=== PATIENT | male | born 1985 | race Caucasian/White ===

== ENCOUNTER 2017-01-24 07:07 | Outpatient (CLI) | payer OTHER ==
--- OUTSIDE RECORDS SUMMARY | 2017-01-24 07:10 | XMS | Clinical Summary ---
:1985 Author Organization [facility] Address [address] [place] [address] Phone Care Team Providers Name Role Phone , Primary Care Provider Unavailable Allergies Active Allergy Reactions Severity Noted Date Comments Cephalexin 07/21/2014 ORAL THRUSH Levofloxacin 07/21/2014 Penicillins 07/21/2014 Current Medications Prescription Sig. Disp. Refills Start Date End Date Status dextroamphetamine-amph Take 25 mg by mouth 2 Active etamine (ADDERALL XR) (two) times daily. 25 MG 24 hr capsuleIndications:Sin us congestion risperiDONE (RISPERDAL Take 2 mg by mouth Active M-TABS) 2 MG nightly. disintegrating tabletIndications:Depr ession risperiDONE (RISPERDAL Take 1 mg by mouth Active M-TABS) 1 MG daily with breakfast. disintegrating tabletIndications:Depr ession ARIPiprazole (ABILIFY) Take 2 mg by mouth Active 2 MG daily. tabletIndications:Depr ession FLUoxetine (PROZAC) 40 Take 40 mg by mouth Active MG daily. capsuleIndications:Dep ression gemfibrozil (LOPID) Take 600 mg by mouth 2 Active 600 MG (two) times daily. tabletIndications:Hype rlipidemia cimetidine (TAGAMET) Take 800 mg by mouth 2 Active 800 MG (two) times daily. tabletIndications:GERD (gastroesophageal reflux disease) pantoprazole Take 10 mg by mouth Active (PROTONIX) 20 MG daily. tabletIndications:GERD (gastroesophageal reflux disease) montelukast Take 10 mg by mouth Active (SINGULAIR) 10 mg nightly. tabletIndications:Seas onal allergies hydrOXYzine (ATARAX) Take 25 mg by mouth Active 25 MG daily with breakfast. tabletIndications:Seas onal allergies silodosin (RAPAFLO) 8 Take by mouth nightly. Active mg CapIndications:Urinary retention ciclesonide (OMNARIS) 2 sprays by Each Nare Active 50 mcg nasal spray route 2 (two) times daily. coenzyme Q10 100 mg Take 100 mg by mouth Active capsule daily. evening primrose oil Take by mouth. Active 500 mg Cap amLODIPine (NORVASC) 07/23/2014 Active 10 MG tablet LINZESS 290 mcg Cap 07/09/2014 Active traMADol (ULTRAM) 50 06/15/2014 Active mg tablet ARIPiprazole (ABILIFY) 07/30/2014 Active 2 MG tablet testosterone cypionate INJECT 2.25 ML 10 mL 0 08/21/2014 Active (DEPOTESTOTERONE INTRAMUSCULARLY ONCE CYPIONATE) 200 mg/mL EVERY 2 WEEKS injectionIndications:[facility], or Other Ordered Dose Route Frequency Start Date End Date Status Facility Administered Medication testosterone cypionate 500 MG IM Q2 Weeks 09/23/2014 Active (DEPOTESTOTERONE CYPIONATE) injection 500 mgIndications:Low testosterone Active Problems Problem Noted Date Acute sinus infection 08/24/2014 Sinus congestion 08/12/2014 Seasonal allergies 08/12/2014 Head ache 08/12/2014 Family History Medical History Relation Name Comments Diabetes Father Hypertension Father Arthritis Maternal Grandfather Hypertension Maternal Grandfather Hypertension Maternal Grandmother Kidney disease Maternal Uncle Hypertension Mother Heart disease Paternal Grandfather Hypertension Paternal Grandfather Heart disease Paternal Grandmother Hypertension Paternal Grandmother Heart disease Paternal Uncle Relation Name Status Comments Father Maternal Grandfather Maternal Grandmother Maternal Uncle Mother Paternal Grandfather Paternal Grandmother Paternal Uncle Social History Tobacco Use Types Packs/Day Years Used Date Never Smoker Alcohol Use Drinks/Week oz/Week Comments No Sex Assigned at Date Recorded Not on file Last Filed Vital Signs Vital Sign Reading Time Taken Blood Pressure 120/80 08/24/2014 1:48 PM CDT Pulse 99 08/24/2014 1:48 PM CDT Temperature 36.9 C (98.4 F) 08/24/2014 1:48 PM CDT Respiratory Rate 18 08/24/2014 1:48 PM CDT Oxygen Saturation 97% 08/24/2014 1:48 PM CDT Inhaled Oxygen Concentration - - Weight 115.7 kg (255 lb) 08/24/2014 1:48 PM CDT Height 177.8 cm (5' 10") 08/24/2014 1:48 PM CDT Body Mass Index 36.59 08/24/2014 1:48 PM CDT Plan of Treatment Health Maintenance Due Date Last Done Comments INFLUENZA VACCINE 12/10/2016 Results Not on filefrom Last 3 Months
--- NOTE | 2017-01-24 08:34 | ULT ---
RIGHT UPPER QUADRANT ULTRASOUND: HISTORY: Right upper quadrant pain. FINDINGS: Exam is limited due to a large amount of bowel gas. The pancreas and left lobe of the liver are not satisfactorily visualized. The right lobe of the liver demonstrates homogeneous echotexture without focal mass or intrahepatic ductal dilatation. No gallstones, gallbladder wall thickening, or pericho lecystic fluid are seen. The common duct measures 5 mm in diameter. The right kidney is unremarkabl e. No free fluid is seen in the Morison's pouch. IMPRESSION: Limited exam. No evidence of cholelithiasis. POS: [facility]
--- NOTE | 2017-01-24 14:47 | NM ---
GASTRIC EMPTYING EXAM: CLINICAL HISTORY: Gastroparesis, slow transit, constipation. RADIOPHARMACEUTICAL: 2 mCi Technetium 99m sulfur colloid, oral ingestion. FINDINGS: The approximately gastric emptying half-time is 158 minutes. At 230 minutes, there is approximate 60 % emptying. IMPRESSION: Gastric emptying half-time of approximately 158 minutes. POS: [facility]
== END 2017-01-24 07:08 | disposition home or self-care (01) ==
LOC: ULT 07:07
PROVIDERS: ATTEND Internal Medicine Gastroenterology
DX: K31.84 Gastroparesis (principal); R10.11 Right upper quadrant pain; K59.01 Slow transit constipation; K76.0 Fatty (change of) liver, not elsewhere classified
CPT/HCPCS: 76705; 78264; A9541

== ENCOUNTER 2017-08-05 08:29 | Emergency (ER) | payer OTHER ==
[2017-08-05 08:50] LABS: #Basophils 0.1 thou/uL (0.0-0.2); #Eosinphils 0.1 thou/uL (0.0-0.7); #Lymphocytes 1.6 thou/uL (1.20-3.40); #Monocytes 0.4 thou/uL (0.11-0.59); #Neutrophils 2.9 thou/uL (1.40-6.50); %Basophils 1.3 % (0.0-1.0); %Eosinophils 1.7 % (0.0-10.0); %Lymphocytes 31.2 % (21.0-51.0); %Monocytes 7.1 % (0.0-10.0); %Neutrophils 58.7 % (42.0-75.0); Hemoglobin 14.9 g/dL (14.0-18.0); Mean Corpuscular HGB CONC 34.1 g/dL (32.0-36.0); Mean Corpuscular Hemoglobin 31.9 pg (27.0-31.0); Mean Corpuscular Volume 93.5 fl (80.0-94.0); Mean Platelet Volume 7.2 fL (7.4-10.4); Platelet Count 286 thou/uL (130-400); RBC Distribution Width 11.5 % (11.5-14.5); Red Blood Cell (RBC) Count 4.66 mill/uL (4.70-6.10)
[2017-08-05 09:08] LABS: ALT (SGPT) 16 U/L (8-55); AST (SGOT) 17 U/L (5-34); Albumin 4.5 g/dL (3.5-5.0); Alkaline Phosphatase 59 U/L (40-150); Anion Gap 11 mmol/L (10-20); BUN (Urea Nitrogen) 12 mg/dL (8.9-20.6); Bilirubin, Total 0.9 mg/dL (0.2-1.2); Calc. Creatinine Clearance 0 mL/min (70-130); Calcium 9.9 mg/dL (7.8-10.44); Carbon Dioxide 20 mmol/L (22-29); Chloride 110 mmol/L (98-107); Estimated GFR-MDRD 88; Globulin 2.8 g/dL (2.4-3.5); Glucose 90 mg/dL (70-105); Potassium 3.8 mmol/L (3.5-5.1); Protein, Total 7.3 g/dL (6.0-8.3); Sodium 137 mmol/L (136-145)
[2017-08-05 09:29] LABS: Bilirubin Negative (Negative); Blood, Urine Large (Negative); Clarity CLEAR (Clear); Glucose, Urine (Dipstick) Negative (Negative); Leukocyte Negative (Negative); Nitrite Negative (Negative); Protein, Urine (Dipstick) Negative (Neg-Trace); Specific Gravity, Urine 1.011 (1.002-1.036); Urobilinogen 0.2 mg/dL (0.2-1.0); pH, Urine 6.5 (5.0-9.0)
[2017-08-05 09:33] LABS: Bacteria/HPF None Seen HPF (None Seen); Hyaline Casts/LPF 0-3 HYALINE CAST LPF (0-3 Hyaline); Pathc Cast-AUWi Flag 0.58 (0-2.49); RBC/HPF GREATER THAN 50-TNTC HPF (0-3); Squamous Epithelial None Seen HPF (0-3); WBC/HPF 0-3 HPF (0-3)
[2017-08-05] MEDS ORDERED: Ondansetron ODT 8 MG TAB ONE (09:35)
[2017-08-05] MEDS ORDERED: HYDROcodone/Acetaminophen 5/325 mg Tablet ONE (11:19)
--- NOTE | 2017-08-05 11:21 | CT ---
CT OF ABDOMEN AND PELVIS: DATE: 08/05/17. COMPARISON: 06/10/16. HISTORY: Hematuria and back pain. TECHNIQUE: Serial axial CT imaging at 5 mm intervals from the lung bases through the pubic symphysis without con trast. Coronal reformatted imaging obtained. FINDINGS: Evaluation of the viscera bowel vascular structures and for lymphadenopathy. The imaged lung bases a re unremarkable with no free intraperitoneal air or fluid seen. The liver, spleen, pancreas, gallbladder, and adrenal glands are unremarkable. There is a punctate nonobstructing stone in the lower pole of the left kidney. There is no evidence for obstructive uropathy on the left. There is a stone within the proximal right ureter measuring 5 mm. There is minimal prominence of the adjacent ureter with no significant hydronephrosis. No additional stone is seen within the right ur eter. Limited assessment of the bowel demonstrates no evidence for obstruction or inflammatory change. Oss eous structures grossly unremarkable. IMPRESSION: A 5 mm stone within the proximal right ureter with no associated hydronephrosis. POS: [facility]
== END 2017-08-05 11:25 | disposition home or self-care (01) ==
LOC: ERS 08:29
DX: N20.0 Calculus of kidney (principal); E78.5 Hyperlipidemia, unspecified; I10 Essential (primary) hypertension; Z79.899 Other long term (current) drug therapy
CPT/HCPCS: 36415; 74176; 80053; 81003; 81015; 85025

== ENCOUNTER 2017-08-21 07:46 | Outpatient (CLI) | payer OTHER ==
--- NOTE | 2017-08-21 09:31 | RAD ---
SUPINE KUB: Date: 08-21-17 Comparison: None. History: Ureteral calculus. Correlation is made to CT abdomen and pelvis performed 08-05-17. FINDINGS: The prior CT examination demonstrated a punctate stone within the proximal right ureter and the level of the ureteropelvic junction. There was also a punctate intrarenal calculus within the left lower p ole. The bowel gas pattern appears nonobstructed. There is spina bifida occulta at the S1 level. No d iscrete calcification is seen in either upper quadrant. There is a calcific density overlying the sacrum on the right measuring 3 mm. This could possibly rep resent the calculus which was noted within the proximal ureter on prior imaging. IMPRESSION: 3-4 mm calcification seen overlying the right sacral ala which could represent a distal right uretera l stone. CT or retrograde study may be beneficial as clinically warranted. POS: [facility]
== END 2017-08-21 07:47 | disposition home or self-care (01) ==
LOC: RAD 07:46
PROVIDERS: ATTEND Urology
DX: N20.1 Calculus of ureter (principal); M61.9 Calcification and ossification of muscle, unspecified
CPT/HCPCS: 74018; 80048; 85027; 85610; 85730; 93005; 93010

== ENCOUNTER 2017-08-21 09:36 | Outpatient (CLI) | payer OTHER ==
[2017-08-21 11:04] LABS: Hemoglobin 15.5 g/dL (14.0-18.0); Mean Corpuscular HGB CONC 33.6 g/dL (32.0-36.0); Mean Corpuscular Hemoglobin 31.6 pg (27.0-31.0); Mean Corpuscular Volume 94.1 fl (80.0-94.0); Mean Platelet Volume 7.2 fL (7.4-10.4); Platelet Count 341 thou/uL (130-400); RBC Distribution Width 11.5 % (11.5-14.5); White Blood Cell (WBC) Count 4.4 thou/uL (4.8-10.8)
[2017-08-21 11:08] LABS: PTT 29.3 SEC (22.9-36.1); Prothrombin Time 12.9 SEC (12.0-14.7)
[2017-08-21 11:22] LABS: Anion Gap 13 mmol/L (10-20); BUN (Urea Nitrogen) 16 mg/dL (8.9-20.6); Calc. Creatinine Clearance 0 mL/min (70-130); Carbon Dioxide 23 mmol/L (22-29); Chloride 106 mmol/L (98-107); Estimated GFR-MDRD Greater than 90; Glucose 88 mg/dL (70-105); Sodium 138 mmol/L (136-145)
--- NOTE | 2017-08-21 13:22 | EKG ---
Test Reason : Blood Pressure : / mmHG Vent. Rate : 057 BPM Atrial Rate : 057 BPM P-R Int : 124 ms QRS Dur : 090 ms QT Int : 432 ms P-R-T Axes : 031 042 053 degrees QTc Int : 420 ms Sinus bradycardia Increased R/S ratio in V1, consider early transition or posterior infarct Abnormal ECG When compared with ECG of 23-JAN-2016 07:43, Vent. rate has decreased BY 32 BPM Confirmed by ISAAC CHASE ([id number]) on 08/21/2017 1:22:05 PM Referred By: SPIKE Confirmed By:ISAAC CHASE
== END 2017-08-21 09:37 | disposition home or self-care (01) ==
LOC: LABBT 09:36
PROVIDERS: ATTEND Urology
DX: Z01.818 Encounter for other preprocedural examination (principal); N20.1 Calculus of ureter; N13.30 Unspecified hydronephrosis
CPT/HCPCS: 80048; 85027; 85610; 85730; 93005; 93010

== ENCOUNTER 2017-08-22 05:42 | Day surgery (SDC) | payer OTHER ==
[2017-08-21 10:06] VITALS: BMI 29.8
[2017-08-22] MEDS ORDERED: Sodium Chloride 0.9% 100 ML ONE (07:57)
[2017-08-22] MEDS ORDERED: cefTRIAXone\\ROCEPHIN 1 GM VIAL ONE (07:57)
--- NOTE | 2017-08-22 09:12 | RAD ---
KUB: DATE: 08/22/17. PROVIDED CLINICAL HISTORY: Preop. FINDINGS: Comparison is made with the KUB dated 08/21/[address] of the abdomen and pelvis 08/05/17. The radioden sity described on the prior radiograph overlying the right sacral ala is redemonstrated, presumably r eflecting known right ureteral calculus. No additional urinary tract calculi are radiographically ap parent. The abdominal bowel gas pattern is nonspecific. The osseous structures demonstrate no monie rning lytic or blastic lesions. IMPRESSION: Radiodensity overlying the right hemipelvis presumably reflects known right ureteral calculus. POS: [facility]
[2017-08-22] MEDS ORDERED: Midazolam HCl 2 mg/2 ml Vial ONE ×2 (09:14→09:56)
[2017-08-22] MEDS ORDERED: Iothalamate Meglumine 60% 50 ML VIAL FS ONE (09:36)
[2017-08-22] MEDS ORDERED: Fentanyl 100 MCG/2 ML VIAL ONE ×2 (09:56→11:27)
[2017-08-22] MEDS ORDERED: Ondansetron HCl/PF 4 MG/2 ML Vial ONE (11:13)
[2017-08-22] MEDS ORDERED: Lidocaine 1% PF 5 ML VIAL ONE (11:13)
[2017-08-22] MEDS ORDERED: Glycopyrrolate 0.2 MG/ML 5 ML SYRINGE ONE (11:13)
[2017-08-22] MEDS ORDERED: ePHEDrine/0.9% NaCl/PF SYRINGE 50 mg/10 ml ONE (11:13)
[2017-08-22] MEDS ORDERED: Dexamethasone 20 MG/5 ML VIAL ONE (11:13)
[2017-08-22] MEDS ORDERED: PROPOFOL 200 MG/20 ML VIAL ONE (11:13)
[2017-08-22] MEDS ORDERED: Oxybutynin 5 MG TAB ONE (11:19)
[2017-08-22] MEDS ORDERED: Phenazopyridine HCl 97.5 MG TABLET ONE (11:19)
--- NOTE | 2017-08-22 11:45 | RAD ---
RETROGRADE PYELOGRAM 3 VIEWS: HISTORY: Ureteral calculus. FINDINGS: These films show the placement of a ureteral stent which appears to be in satisfactory position. IMPRESSION: Right ureteral stent placement which appears to be in good position. POS: [facility]
--- NOTE | 2017-08-22 17:28 | OP ---
DATE OF PROCEDURE: 08/22/2017 PREOPERATIVE DIAGNOSES: 1. A 32-year-old male with history of right proximal ureteral calculi 5 mm. 2. Left punctate renal lithiasis. POSTOPERATIVE DIAGNOSES: 1. A 32-year-old male with history of right proximal ureteral calculi 5 mm. 2. Left punctate renal lithiasis. PROCEDURES: Cystoscopy, right retrograde, 6 x 26 double-J ureteral stent placement on dangler, dilation of the right distal intramural ureter, ureteroscopy, laser lithotripsy, basket extraction of stone fragments. SURGEON: Karen Luke D.O. ANESTHESIA: General. COMPLICATIONS: None apparent. SPECIMEN: Stone fragments for chemical analysis. INTRAOPERATIVE FINDINGS: Distal migration of right proximal ureteral stone to the level of the ureter, bladder and urethra are grossly unremarkable. INDICATIONS FOR PROCEDURE AND HISTORY: Mr. Woo is a 32-year-old male, who presented to the emergency room due to right ureteral calculi with flank pain. His pain was adequately controlled with narcotics; however, required around the clock pain management and desired to proceed with elective ureteroscopy and laser lithotripsy. As there is minimal hydronephrosis, I informed the patient regarding options of medical expulsion therapy. He was observed for about a week, however, desired to proceed with elective ureteroscopy, laser lithotripsy. Follow up KUB demonstrated distal migration to the mid SI joint level. Risks and complications, indications were fully reviewed with the patient including, but not limited to, bleeding, pain, infection, injury to adjacent organs, urosepsis, stricture formation, possible secondary procedure was reviewed. All questions answered to his satisfaction and he desired to proceed. DESCRIPTION OF THE PROCEDURE: After an informed consent is signed, the patient is taken to the operating room, placed in a dorsal lithotomy position with the genital area prepped and draped in the usual surgical sterile fashion. A 21- [place] cystoscope was utilized for cystoscopy which demonstrated normal anterior and posterior urethra. Upon entering the bladder, the UO was identified in normal anatomical location. The right UO was identified and an open-ended catheter was utilized to perform a retrograde pyelogram which demonstrated a subtle filling defect and mild dilatation of the proximal to the right mid SI joint level of the stone. A 0.35 sensor wire was placed in the right upper pole without difficulty. We subsequently dilated the intramural ureter with a [employer] balloon dilator 4 cm, 12 [place] Islander. After adequate dilatation, we were able to pass a rigid ureteroscope carefully negotiated under direct visualization and the stone was able to be directly visualized. Using a 200 micron laser fiber at a dust setting, we dusted the stone. Most of the stone was dusted into dust-like debris; however, they fragmented into a couple of fragments which were basket extracted. There was a possibility that one fragment, although a small may have migrated into the proximal ureter. Therefore, we passed a second safety wire, 0.35 Super Stiff and flexible ureteroscope was advanced over the guidewire. I was unable to pass the flexible ureteroscope beyond the proximal ureter. I was able to visualize up to the UPJ junction, no proximal ureteral stone was appreciated. As I was unable to access the collecting system with stone cleared within the ureter itself, moreover the stone fragmented into multiple tiny pieces, no further intervention was necessary. The ureter was surveyed which demonstrated no evidence of ureteral mucosa trauma, no stone nidus of concern. Bladder was completely emptied and a 6 x 26 double-J ureteral stent was passed into the right upper pole with distal coil with adequate redundancy in the bladder. Dangler was left in situ. He will follow up with me next week for stent pull on dangler. He will be discharged with Flomax, antibiotics, Bactrim DS, AZO, we will provide refill prescription for his [employer] 5/325 #50. MTDD
== END 2017-08-22 13:05 | disposition home or self-care (01) ==
LOC: SDC 05:42
PROVIDERS: ATTEND Urology
PROC: 0TC68ZZ Extirpation of Matter from Right Ureter, Via Natural or Artificial Opening Endoscopic (ICD-10-PCS; principal; 2017-08-22)
PROC: BT1DYZZ Fluoroscopy of Right Kidney, Ureter and Bladder using Other Contrast (ICD-10-PCS; principal; 2017-08-22)
PROC: 0T768DZ Dilation of Right Ureter with Intraluminal Device, Via Natural or Artificial Opening Endoscopic (ICD-10-PCS; principal; 2017-08-22)
DX: N13.2 Hydronephrosis with renal and ureteral calculous obstruction (principal); F41.9 Anxiety disorder, unspecified; F32.9 Major depressive disorder, single episode, unspecified; F90.9 Attention-deficit hyperactivity disorder, unspecified type; K21.9 Gastro-esophageal reflux disease without esophagitis; G43.019 Migraine without aura, intractable, without status migrainosus; Z87.442 Personal history of urinary calculi; Z88.0 Allergy status to penicillin; Z88.1 Allergy status to other antibiotic agents; Z88.8 Allergy status to other drugs, medicaments and biological substances
CPT/HCPCS: 74018; 74420; 82365; 88300; 96374; J0696; J1100; J2001; J2250; J2405; J2704; J3010; J7050; Q9961

== ENCOUNTER 2017-10-12 08:24 | Outpatient (CLI) | payer OTHER ==
--- NOTE | 2017-10-15 14:22 | RAD ---
MODIFIED BARIUM SWALLOW: Date: 10/12/17 HISTORY: Dysphagia. Difficulty swallowing. FINDINGS/IMPRESSION: Exam was performed by speech pathology with multiple consistencies. Video review is available and dem onstrates good bolus formation and retropulsion> Good initiation of swallowing. With nectar consisten cies, there is minimal penetration and a small amount of pooling. Good clearance upon secondary swall ows. Slightly deeper penetration is present with the thin barium liquids. No evidence of aspiration. The esophagus below the level of the hypopharynx was not evaluated. Fluoro time equals 29 seconds. Please see separate detailed report from speech pathology. POS: [facility]
== END 2017-10-12 08:25 | disposition home or self-care (01) ==
PROVIDERS: ATTEND Otolaryngology Otolaryngic Allergy
DX: R13.11 Dysphagia, oral phase (principal)
CPT/HCPCS: 74230; G8996-GN-CI; G8997-GN-CI; G8998-GN-CI

== ENCOUNTER 2018-01-14 07:13 | Outpatient (CLI) | payer OTHER ==
--- NOTE | 2018-01-14 12:22 | NM ---
HEPATOBILIARY SCAN: HISTORY: Right upper quadrant pain. No gallstones on ultrasound of 12/26/2017. RADIOPHARMACEUTICAL: 5 mCi Technetium 99m-mebrofenin injected intravenously. FINDINGS: There is good flow and tracer extraction by the liver with prompt excretion into the biliary tract an d small bowel loops and normal filling of the gallbladder. The calculated gallbladder ejection fract ion following an oral fatty meal measures 29%. IMPRESSION: Gallbladder dyskinesia/chronic acalculus cholecystitis. POS: [facility]
== END 2018-01-14 07:14 | disposition home or self-care (01) ==
LOC: NM 07:13
PROVIDERS: ATTEND Internal Medicine Gastroenterology
DX: R10.11 Right upper quadrant pain (principal); R19.7 Diarrhea, unspecified; H18.04 Kayser-Fleischer ring; K31.84 Gastroparesis; K82.8 Other specified diseases of gallbladder
CPT/HCPCS: 78227; A9537

== ENCOUNTER 2018-01-21 19:48 | Emergency (ER) | payer OTHER ==
[2018-01-21 20:22] LABS: Bilirubin Negative (Negative); Blood, Urine Moderate (Negative); Clarity CLEAR (Clear); Glucose, Urine (Dipstick) Negative (Negative); Leukocyte Negative (Negative); Nitrite Negative (Negative); Protein, Urine (Dipstick) Negative (Neg-Trace); Specific Gravity, Urine 1.009 (1.002-1.036); Urobilinogen 0.2 mg/dL (0.2-1.0)
[2018-01-21 20:24] LABS: Bacteria/HPF None Seen HPF (None Seen); Hyaline Casts/LPF 0-3 HYALINE CAST LPF (0-3 Hyaline); RBC/HPF 0-3 HPF (0-3); Squamous Epithelial None Seen HPF (0-3); WBC/HPF 0-3 HPF (0-3)
[2018-01-21 20:49] LABS: #Basophils 0.1 thou/uL (0.0-0.2); #Eosinphils 0.2 thou/uL (0.0-0.7); #Lymphocytes 1.8 thou/uL (1.20-3.40); #Monocytes 0.6 thou/uL (0.11-0.59); #Neutrophils 7.2 thou/uL (1.40-6.50); %Basophils 0.5 % (0.0-1.0); %Eosinophils 1.6 % (0.0-10.0); %Lymphocytes 18.7 % (21.0-51.0); %Monocytes 6.3 % (0.0-10.0); %Neutrophils 72.9 % (42.0-75.0); Hemoglobin 14.9 g/dL (14.0-18.0); Mean Corpuscular Hemoglobin 30.8 pg (27.0-31.0); Mean Corpuscular Volume 93.3 fL (78.0-98.0); Platelet Count 356 thou/uL (130-400); RBC Distribution Width 11.9 % (11.5-14.5); Red Blood Cell (RBC) Count 4.85 mill/uL (4.70-6.10); White Blood Cell (WBC) Count 9.9 thou/uL (4.8-10.8)
[2018-01-21 21:07] LABS: Anion Gap 11 mmol/L (10-20); BUN (Urea Nitrogen) 15 mg/dL (8.9-20.6); Calc. Creatinine Clearance 0 mL/min (70-130); Calcium 9.6 mg/dL (7.8-10.44); Carbon Dioxide 22 mmol/L (22-29); Chloride 111 mmol/L (98-107); Estimated GFR-MDRD Greater than 90; Glucose 89 mg/dL (70-105); Potassium 3.6 mmol/L (3.5-5.1); Sodium 140 mmol/L (136-145)
--- NOTE | 2018-01-21 21:11 | CT ---
CT ABDOMEN AND PELVIS NONCONTRAST: HISTORY: Flank pain. TECHNIQUE: Noncontrast enhanced CT images of the abdomen and pelvis are obtained. FINDINGS: The lung bases are unremarkable. No evidence of free intraperitoneal air is seen. The liver, spleen, gallbladder, pancreas, and adrenal glands, as well as loops of small bowel and col on, are unremarkable. There is a moderate degree of left-sided hydroureteronephrosis. There is a proximal left ureteral ca lculus, measuring 6 x 6 mm. The rest of the abdomen and pelvis is unremarkable. IMPRESSION: Obstructing proximal left ureteral calculus. POS: [facility]
[2018-01-21] MEDS ORDERED: Ketorolac Tromethamine 60 MG/2 ML VIAL ONE (21:40)
== END 2018-01-21 22:40 | disposition home or self-care (01) ==
LOC: ERS 19:48
DX: N13.2 Hydronephrosis with renal and ureteral calculous obstruction (principal); E78.5 Hyperlipidemia, unspecified; I10 Essential (primary) hypertension; F31.9 Bipolar disorder, unspecified; F41.9 Anxiety disorder, unspecified; Z79.899 Other long term (current) drug therapy
CPT/HCPCS: 74176; 80048; 81003; 81015; 85025; 96361; 96374; J1885

== ENCOUNTER 2018-01-22 12:54 | Outpatient (CLI) | payer OTHER ==
[2018-01-22 14:08] LABS: PTT 27.9 SEC (22.9-36.1); Prothrombin Time 12.9 SEC (12.0-14.7)
== END 2018-01-22 12:55 | disposition home or self-care (01) ==
LOC: LABBT 12:54
PROVIDERS: ATTEND Urology
DX: Z01.818 Encounter for other preprocedural examination (principal); N20.1 Calculus of ureter
CPT/HCPCS: 81001; 85610; 85730; 87086

== ENCOUNTER 2018-01-23 09:22 | Day surgery (SDC) | payer OTHER ==
[2018-01-22 12:58] VITALS: BMI 30.4
[2018-01-23] MEDS ORDERED: cefTRIAXone\\ROCEPHIN 2 GM in Sodium Chloride 0.9% 100 ML IVPB SCH (12:45)
[2018-01-23] MEDS ORDERED: Fentanyl 100 MCG/2 ML VIAL ONE (12:51)
[2018-01-23] MEDS ORDERED: Atracurium 100 MG/10 ML VIAL ONE (12:52)
[2018-01-23] MEDS ORDERED: Iothalamate Meglumine 60% 50 ML VIAL FS ONE (13:11)
--- NOTE | 2018-01-23 14:08 | RAD ---
KUB: Date: 01-23-18 Comparison: 08-22-17 History: Pre-operative patient. History of renal stone disease. FINDINGS: Stool and bowel gas limits detailed assessment of bilateral renal shadows as does patient body habitu s. No obvious calcification is seen in either upper quadrant or along the expected either ureter. Rep eat CT may be beneficial as clinically warranted. No evidence for small bowel obstruction. IMPRESSION: Grossly unremarkable KUB. POS: [facility]
[2018-01-23] MEDS ORDERED: Phenazopyridine HCl 97.5 MG TABLET ONE (14:47)
--- NOTE | 2018-01-23 15:19 | RAD ---
RETROGRADE URETEROGRAM WITH INTRAOPERATIVE FLUOROSCOPY: HISTORY: Renal calculi. FINDINGS: Intraoperative fluoroscopy was provided for a retrograde study, as performed by Dr. Luke. Spo t fluoroscopic images show catheterization and opacification of a nondilated left renal collecting sy stem and ureter. The final image shows a double-pigtail stent overlying the course of the left ureter. POS: [facility]
[2018-01-23] MEDS ORDERED: HYDROcodone/Acetaminophen 5/325 mg Tablet ONE (16:03)
[2018-01-23] MEDS ORDERED: Ketorolac Tromethamine 30 MG/ML VIAL ONE (16:29)
[2018-01-23] MEDS ORDERED: Dexamethasone 20 MG/5 ML VIAL ONE (16:29)
[2018-01-23] MEDS ORDERED: Lidocaine 1% PF 5 ML VIAL ONE (16:29)
[2018-01-23] MEDS ORDERED: PHENYLEPHRINE-NS 100 MCG/ML 10 ML SYRINGE ONE (16:29)
[2018-01-23] MEDS ORDERED: PROPOFOL 200 MG/20 ML VIAL ONE (16:29)
[2018-01-23] MEDS ORDERED: Ondansetron PF 4 MG/2 ML Vial ONE (16:29)
--- NOTE | 2018-01-23 17:02 | OP ---
PREOPERATIVE DIAGNOSES: A 32-year-old male with history of recurrent kidney stone, left flank pain d ue to proximal 6 mm L3 ureteral stone with hydronephrosis. POSTOPERATIVE DIAGNOSES: A 32-year-old male with history of recurrent kidney stone, left flank pain due to proximal 6 mm L3 ureteral stone with hydronephrosis. PROCEDURES: Cystoscopy, left retrograde pyelogram, balloon dilatation of the distal intramural urete r, rigid ureteroscopy, flexible ureteroscopy, pyeloscopy, laser lithotripsy of proximal migrated uret eral stone, 6 x 26 double-J ureteral stent placement on dangler taped to the patient's pubic symphysi s. SURGEON: Karen Luke D.O. ANESTHESIA: General. COMPLICATIONS: None apparent. DISPOSITION: To the recovery room in stable condition. Minimal to none. SPECIMEN: None. INDICATIONS FOR THE PROCEDURE AND HISTORY: Mr. Woo is a 32-year-old male whom I have seen before fo r a right ureteral stone treated and resolved with laser lithotripsy. He presented to the emergency room due to left flank pain and was found to have a proximal ureteral stone, 6 mm at L3 with moderate hydronephrosis. He desired to proceed with ureteroscopy, laser lithotripsy and declined medical exp ulsion therapy. Risks and complications of the procedure was reviewed with him in detail including, but not limited to, bleeding, pain, infection, injury to adjacent organs, urosepsis, ureteral strictu re formation, possible secondary procedure. All questions were answered to his satisfaction and he d esired to proceed. DESCRIPTION OF THE PROCEDURE: After an informed consent was signed, the patient was taken to the ope rating room, placed in a dorsal lithotomy position with the genital area prepped and draped in the [facility] surgical sterile fashion. Broad-spectrum antibiotics and bilateral CHERELLE hose, SCDs were provided. A 21-[place] cystoscope was utilized for cystoscopy which demonstrated normal anterior and posterior urethra. Upon into the bladder, no bladder stones were seen. UOs were identified in normal locatio n. We passed a 5-[place]yan open-ended catheter for a left retrograde pyelogram. There was mild dilatio n of the proximal ureter; however, I did not see any obvious stone nidus of concern. Therefore, a 0. 35 sensor wire was passed into the left upper pole and we dilated the intramural ureter. Rigid urete roscope was then subsequently passed without difficulty and I could not find the stone along the cour se of the proximal ureter. The rigid ureteroscope was able to be passed to the level of L3 ureter wi thout significant issues. At this time, a second safety wire, 0.35 Super Stiff was passed to the lev el of the left upper pole. I attempted to pass a navigator which went into the level of the distal u reter at the S3 level; however, it was somewhat difficult to pass; therefore, I did not further engag e. At this time, a flexible ureteroscope was advanced over the Super Stiff wire which did pass witho ut difficulty to the level of the renal pelvis. We surveyed the collecting system and eventually fou nd the stone which appeared to have proximally migrated from L3 ureter to the left upper pole. We la ser-lithotripsied the stone with 365 micron laser fiber into tiny fragmented pieces. As I did not craig ve a navigator, I laser-lithotripsied as much as we could into tiny dust-like debris which did not wa rrant basket extraction. We surveyed the rest of the collecting system which demonstrated no evidenc e of stone nidus. The ureter was surveyed which demonstrated no evidence of ureteral mucosal trauma or perforation. A 6 x 26 double-J ureteral stent was passed without difficulty. Bladder was emptied and the stent dangler was then taped to patient's pubic symphysis. He tolerated the procedure well. He was discharged with Bactrim DS 1 p.o. b.i.d.; [place] 5/325. He may continue his Flomax, AZO over the counter. Return to clinic on Sunday for stent pull on dangler.
== END 2018-01-23 16:28 | disposition home or self-care (01) ==
LOC: SDC 09:22
PROVIDERS: ATTEND Urology
PROC: 0TF78ZZ Fragmentation in Left Ureter, Via Natural or Artificial Opening Endoscopic (ICD-10-PCS; principal; 2018-01-23)
PROC: 0T778DZ Dilation of Left Ureter with Intraluminal Device, Via Natural or Artificial Opening Endoscopic (ICD-10-PCS; principal; 2018-01-23)
DX: N13.2 Hydronephrosis with renal and ureteral calculous obstruction (principal); F32.9 Major depressive disorder, single episode, unspecified; F41.9 Anxiety disorder, unspecified; K21.9 Gastro-esophageal reflux disease without esophagitis; G43.919 Migraine, unspecified, intractable, without status migrainosus; Z79.899 Other long term (current) drug therapy; Z88.0 Allergy status to penicillin
CPT/HCPCS: 74018; 74420; C1758; C1769; J0696; J1100; J1885; J2001; J2405; J2704; J3010; J7050; Q9961

== ENCOUNTER 2018-02-25 10:05 | Outpatient (CLI) | payer OTHER ==
--- NOTE | 2018-02-25 11:12 | RAD ---
ABDOMEN 1 VIEW: HISTORY: Recurrent kidney stones. COMPARISON: Radiograph 01/23/2018. FINDINGS: There are 5 [id number]-[id number] lumbar-type vertebrae. No abnormal calcifications projecting over the re nal shadows. IMPRESSION: No abnormal calcifications appreciated. POS: [facility]
--- NOTE | 2018-02-25 11:30 | ULT ---
RENAL ULTRASOUND: Indications: Kidney stones. FINDINGS: Right kidney measure 10.4 cm and left kidney measures 11.1 cm. There is no hydronephrosis. No renal m ass or cystic lesion identified. No evidence of calculus identified by ultrasound. Urinary bladder is mildly distended and appears unremarkable. Bladder empties well with voiding. IMPRESSION: Unremarkable renal ultrasound. POS: [facility]
== END 2018-02-25 10:06 | disposition home or self-care (01) ==
LOC: BICULT 10:05
PROVIDERS: ATTEND Urology
DX: N20.2 Calculus of kidney with calculus of ureter (principal)
CPT/HCPCS: 36415; 74018; 76770; 80048; 81001; 83970; 84550; 87086

== ENCOUNTER 2018-04-06 16:27 | Emergency (ER) | payer OTHER ==
[2018-04-06 17:09] LABS: Bilirubin Negative (Negative); Blood, Urine Negative (Negative); Clarity CLEAR (Clear); Glucose, Urine (Dipstick) Negative (Negative); Leukocyte Negative (Negative); Nitrite Negative (Negative); Protein, Urine (Dipstick) Negative (Neg-Trace); Specific Gravity, Urine 1.017 (1.002-1.036); Urobilinogen 0.2 mg/dL (0.2-1.0)
[2018-04-06] MEDS ORDERED: Ondansetron PF 4 MG/2 ML Vial ONE (17:58)
[2018-04-06 18:00] LABS: #Eosinphils 0.2 thou/uL (0.0-0.7); #Lymphocytes 2.1 thou/uL (1.20-3.40); #Monocytes 0.5 thou/uL (0.11-0.59); %Basophils 0.9 % (0.0-1.0); %Eosinophils 2.7 % (0.0-10.0); %Lymphocytes 35.9 % (21.0-51.0); %Monocytes 7.9 % (0.0-10.0); %Neutrophils 52.6 % (42.0-75.0); Hemoglobin 14.9 g/dL (14.0-18.0); Mean Corpuscular HGB CONC 33.1 g/dL (32.0-36.0); Mean Corpuscular Hemoglobin 31.3 pg (27.0-31.0); Mean Corpuscular Volume 94.6 fL (78.0-98.0); Mean Platelet Volume 7.6 fL (7.4-10.4); Platelet Count 299 thou/uL (130-400); RBC Distribution Width 11.7 % (11.5-14.5); Red Blood Cell (RBC) Count 4.77 mill/uL (4.70-6.10); White Blood Cell (WBC) Count 5.7 thou/uL (4.8-10.8)
[2018-04-06 18:20] LABS: ALT (SGPT) 13 U/L (8-55); AST (SGOT) 12 U/L (5-34); Albumin 4.2 g/dL (3.5-5.0); Alkaline Phosphatase 74 U/L (40-150); Anion Gap 12 mmol/L (10-20); BUN (Urea Nitrogen) 13 mg/dL (8.9-20.6); Bilirubin, Total 0.3 mg/dL (0.2-1.2); Calc. Creatinine Clearance 0 mL/min (70-130); Calcium 9.8 mg/dL (7.8-10.44); Carbon Dioxide 20 mmol/L (22-29); Chloride 112 mmol/L (98-107); Estimated GFR-MDRD 82; Globulin 2.9 g/dL (2.4-3.5); Glucose 90 mg/dL (70-105); Lipase 28 U/L (8-78); Potassium 3.8 mmol/L (3.5-5.1); Protein, Total 7.1 g/dL (6.0-8.3); Sodium 140 mmol/L (136-145)
--- NOTE | 2018-04-06 18:28 | CT ---
CT ABDOMEN AND PELVIS NONCONTRAST: 04/06/18 HISTORY: Right flank pain. COMPARISON: 01/21/18. FINDINGS: Each renal collecting system, ureter, and the urinary bladder are decompressed without stone apparent . Lack of contrast limits evaluation for other abnormalities. Phleboliths are apparent within the pelvi s. IMPRESSION: No CT evidence of urinary tract obstruction or calcification. POS: [facility]
== END 2018-04-06 19:27 | disposition home or self-care (01) ==
LOC: ERS 16:27
DX: R10.9 Unspecified abdominal pain (principal); E78.5 Hyperlipidemia, unspecified; I10 Essential (primary) hypertension; Z79.899 Other long term (current) drug therapy
CPT/HCPCS: 36415; 74176; 80053; 81003; 83690; 85025; 96361; 96374; J2405

== ENCOUNTER 2018-04-18 17:28 | Emergency (ER) | payer OTHER ==
[2018-04-18 17:55] LABS: #Basophils 0.1 thou/uL (0.0-0.2); #Lymphocytes 1.7 thou/uL (1.20-3.40); #Monocytes 0.5 thou/uL (0.11-0.59); #Neutrophils 5.4 thou/uL (1.40-6.50); %Basophils 0.7 % (0.0-1.0); %Eosinophils 0.2 % (0.0-10.0); %Lymphocytes 22.3 % (21.0-51.0); %Monocytes 6.2 % (0.0-10.0); %Neutrophils 70.6 % (42.0-75.0); Hemoglobin 15.5 g/dL (14.0-18.0); Mean Corpuscular HGB CONC 32.8 g/dL (32.0-36.0); Mean Corpuscular Hemoglobin 30.9 pg (27.0-31.0); Mean Corpuscular Volume 94.2 fL (78.0-98.0); Mean Platelet Volume 7.4 fL (7.4-10.4); Platelet Count 293 thou/uL (130-400); RBC Distribution Width 11.6 % (11.5-14.5); Red Blood Cell (RBC) Count 5.03 mill/uL (4.70-6.10); White Blood Cell (WBC) Count 7.7 thou/uL (4.8-10.8)
[2018-04-18 17:58] LABS: Bilirubin Small (Negative); Blood, Urine Negative (Negative); Clarity CLEAR (Clear); Glucose, Urine (Dipstick) Negative (Negative); Leukocyte Negative (Negative); Nitrite Negative (Negative); Protein, Urine (Dipstick) 30 mg/dL (Neg-Trace); Specific Gravity, Urine 1.035 (1.002-1.036); Urobilinogen 0.2 mg/dL (0.2-1.0); pH, Urine 5.5 (5.0-9.0)
[2018-04-18 18:01] LABS: Bacteria/HPF None Seen HPF (None Seen); Pathc Cast-AUWi Flag 1.16 (0-2.49); Squamous Epithelial 0-3 HPF (0-3); WBC/HPF 0-3 HPF (0-3)
[2018-04-18 18:10] LABS: Hyaline Casts/LPF 7-10 HYALINE CAST LPF (0-3 Hyaline)
[2018-04-18 18:11] LABS: Crystals/HPF 1+ CA OXALATE HPF (Negative)
--- NOTE | 2018-04-18 18:17 | CT ---
NONCONTRAST ENHANCED CT IMAGES ABDOMEN AND PELVIS 04/18/18 COMPARISON: Comparison made to previous exam from 04/06/18. Noncontrast enhanced CT images of the abdomen and pelvis demonstrates the lung bases to be unremarkab le. No evidence of free intraperitoneal air seen. As noted on the previous exam, no evidence of renal calculi is seen. the liver and spleen are unremarkable. The gallbladder and pancreas are unremarkabl e. Adrenal glands are unremarkable. No evidence of hydronephrosis seen. No evidence of periaortic lymphadenopathy seen. IMPRESSION: No evidence of renal calculi seen. POS: [facility]
[2018-04-18 18:18] LABS: ALT (SGPT) 15 U/L (8-55); AST (SGOT) 16 U/L (5-34); Albumin 5.1 g/dL (3.5-5.0); Alkaline Phosphatase 81 U/L (40-150); Anion Gap 15 mmol/L (10-20); BUN (Urea Nitrogen) 10 mg/dL (8.9-20.6); Bilirubin, Total 0.9 mg/dL (0.2-1.2); Calc. Creatinine Clearance 0 mL/min (70-130); Calcium 10.4 mg/dL (7.8-10.44); Carbon Dioxide 26 mmol/L (22-29); Chloride 102 mmol/L (98-107); Estimated GFR-MDRD 73; Globulin 3.2 g/dL (2.4-3.5); Glucose 84 mg/dL (70-105); Potassium 3.1 mmol/L (3.5-5.1); Protein, Total 8.3 g/dL (6.0-8.3); Sodium 140 mmol/L (136-145)
[2018-04-18] MEDS ORDERED: Ondansetron PF 4 MG/2 ML Vial ONE (18:44)
[2018-04-18] MEDS ORDERED: Morphine 4 MG/ML VIAL ONE (18:44)
== END 2018-04-18 19:50 | disposition home or self-care (01) ==
LOC: ERS 17:28
DX: R10.9 Unspecified abdominal pain (principal); E78.5 Hyperlipidemia, unspecified; I10 Essential (primary) hypertension; F31.9 Bipolar disorder, unspecified; K58.9 Irritable bowel syndrome, unspecified; Z87.442 Personal history of urinary calculi; Z79.891 Long term (current) use of opiate analgesic; Z79.899 Other long term (current) drug therapy
CPT/HCPCS: 36415; 74176; 80053; 81003; 81015; 83690; 85025; 96374; 96375; J2270; J2405

== ENCOUNTER 2018-05-03 05:44 | Emergency (ER) | payer OTHER ==
[2018-05-03] MEDS ORDERED: Lorazepam 2 MG/ML VIAL ONE (07:01)
[2018-05-03 07:15] LABS: #Basophils 0.1 thou/uL (0.0-0.2); #Eosinphils 0.1 thou/uL (0.0-0.7); #Lymphocytes 1.4 thou/uL (1.20-3.40); #Monocytes 0.5 thou/uL (0.11-0.59); #Neutrophils 4.7 thou/uL (1.40-6.50); %Eosinophils 1.5 % (0.0-10.0); %Lymphocytes 20.8 % (21.0-51.0); %Monocytes 6.9 % (0.0-10.0); %Neutrophils 69.8 % (42.0-75.0); Mean Corpuscular HGB CONC 32.1 g/dL (32.0-36.0); Mean Corpuscular Hemoglobin 31.2 pg (27.0-31.0); Mean Platelet Volume 6.8 fL (7.4-10.4); Platelet Count 345 thou/uL (130-400); RBC Distribution Width 11.8 % (11.5-14.5); Red Blood Cell (RBC) Count 5.14 mill/uL (4.70-6.10); White Blood Cell (WBC) Count 6.7 thou/uL (4.8-10.8)
[2018-05-03 07:40] LABS: ALT (SGPT) 20 U/L (8-55); AST (SGOT) 17 U/L (5-34); Albumin 4.8 g/dL (3.5-5.0); Alkaline Phosphatase 81 U/L (40-150); Anion Gap 12 mmol/L (10-20); BUN (Urea Nitrogen) 19 mg/dL (8.9-20.6); Bilirubin, Total 0.4 mg/dL (0.2-1.2); Calc. Creatinine Clearance 0 mL/min (70-130); Calcium 10.2 mg/dL (7.8-10.44); Carbon Dioxide 26 mmol/L (22-29); Chloride 106 mmol/L (98-107); Estimated GFR-MDRD Greater than 90; Globulin 3.5 g/dL (2.4-3.5); Glucose 85 mg/dL (70-105); Lavender RECEIVED; Potassium 4.1 mmol/L (3.5-5.1); Protein, Total 8.3 g/dL (6.0-8.3); Red RECEIVED; Sodium 140 mmol/L (136-145)
--- NOTE | 2018-05-03 10:17 | CT ---
HEAD CT NONCONTRAST: CLINICAL HISTORY: Emergency exam. FINDINGS: There is no acute intracranial hemorrhage, mass effect, midline shift, or ventriculomegaly. Notification of findings placed at 0715 hrs, 05/03/2018. IMPRESSION: No acute intracranial hemorrhage or mass effect. POS: [facility]
== END 2018-05-03 09:06 | disposition home or self-care (01) ==
LOC: ERS 05:44
DX: H53.8 Other visual disturbances (principal); T43.295A Adverse effect of other antidepressants, initial encounter; E78.5 Hyperlipidemia, unspecified; I10 Essential (primary) hypertension; F31.9 Bipolar disorder, unspecified; F41.9 Anxiety disorder, unspecified; Z79.899 Other long term (current) drug therapy
CPT/HCPCS: 70450; 80053; 85025; 96374; J2060

== ENCOUNTER 2018-09-17 13:38 | Outpatient (CLI) | payer OTHER ==
--- NOTE | 2018-09-17 15:03 | ULT ---
ULTRASOUND SCROTUM AND TESTICLES DOPPLER DUPLEX: DATE: 09/17/2018 HISTORY: 33-year-old male with left scrotal pain TECHNIQUE: Grayscale evaluation of intrascrotal contents. Color flow Doppler and spectral waveform analysis of t he testicles. FINDINGS: Right testicle: 2.3 x 4.4 x 2.6 cm Left testicle: 3.1 x 3.6 x 2.1 cm Right epididymal head: 1.7 x 2.1 cm Left epididymal head: 1.8 x 1.2 cm Testicular echogenicity: Normal Testicular blood flow:Bilaterally symmetrical. Intratesticular mass:None Hydrocele:Small bilaterally. Varicocele:None Normal sized 0.4 x 0.4 x 0.2 cm left testicular appendix. (Unfortunately, Doppler interrogation of th is was not performed. However, its normal size suggests that it is not torsed.) Bilateral epididymal cysts. Largest on the right is 1.6 x 1.6 x 0.9 cm. Largest on the left is 0.8 x 0.8 x 0.7 cm. IMPRESSION: 1) normal bilateral testicles. 2) left testicular appendix within normal limits in size. 3) bilateral epididymal cysts consistent with spermatoceles.
--- NOTE | 2018-09-17 15:09 | ULT ---
BILATERAL RENAL ULTRASOUND: 09/17/18 COMPARISON: 02/25/18. HISTORY: Calculus of the kidney. TECHNIQUE: Multiplanar hdz scale and color Doppler images were obtained in a renal ultrasound. FINDINGS: The kidneys are normal in echogenicity without hydronephrosis or shadowing calculi and measure 10.7 a nd 11.1 cm in length on the right and left, respectively. Limited visualization of the urinary bladder is unremarkable. IMPRESSION: Unremarkable exam. POS: [facility]
--- NOTE | 2018-09-17 15:23 | CT ---
Exam: Abdomen CT without contrast Pelvic CT without contrast HISTORY: Recurrent renal calculi. Left testicular pain COMPARISON: None FINDINGS: Abdomen CT: Lung bases:Clear Heart size: Normal size Aorta: Normal caliber Solid organs: Limited evaluation by the lack of IV contrast. Grossly no solid organ abnormality. Lymph nodes: No gastrohepatic, retrocrural or periportal lymphadenopathy Gallbladder: Contracted Mesentery: No mass, lymphadenopathy, free air or free fluid Kidneys: Bilaterally, no hydronephrosis, nephrolithiasis or perinephric fat stranding. Bilateral uret ers have a normal caliber. No hydroureter, periureteral fat stranding or ureterolithiasis. Alimentary canal: Limited evaluation by technique. No evidence of bowel obstruction. Appendix is not seen. No inflammation at the cecal apex. CT PELVIS: No mass, adenopathy, free air or free fluid. Urinary bladder: Unremarkable. Osseous structures: No lytic or blastic lesions IMPRESSION: No evidence of obstructive uropathy.
== END 2018-09-17 13:39 | disposition home or self-care (01) ==
LOC: BICULT 13:38
PROVIDERS: ATTEND Urology
DX: N20.0 Calculus of kidney (principal); N50.812 Left testicular pain
CPT/HCPCS: 74176; 76770; 76870; 93976

== ENCOUNTER 2019-01-10 09:56 | Emergency (ER) | payer OTHER | END 2019-01-10 10:25 | disposition home or self-care (01) | LOC: SCSER 09:56 | DX: J02.9 Acute pharyngitis, unspecified (principal); H73.892 Other specified disorders of tympanic membrane, left ear; G43.909 Migraine, unspecified, not intractable, without status migrainosus; I10 Essential (primary) hypertension; Z79.899 Other long term (current) drug therapy | CPT/HCPCS: 87081; 87430; 99283 ==

== ENCOUNTER 2020-04-25 10:04 | Emergency (ER) | payer OTHER ==
--- NOTE | 2020-04-25 11:00 | RAD ---
Exam:Right elbow 2 views HISTORY: Fall. Pain. COMPARISON: None FINDINGS: No joint effusion. No fractures or malalignment. IMPRESSION: Limited evaluation as only 2 views have been provided. No obvious fractures.
--- NOTE | 2020-04-25 11:01 | RAD ---
Exam: Chest one view HISTORY:Fall. Pain. Comparison: None FINDINGS: Cardiac silhouette: Normal Aorta: Unremarkable Pulmonary vessels: Normal Costophrenic angles: Clear LUNGS: No masses or consolidation. Pneumothorax: None Osseous abnormalities: None IMPRESSION: No acute cardiopulmonary process.
--- NOTE | 2020-04-25 11:01 | RAD ---
Exam:3 views right shoulder HISTORY: Fall. Pain. COMPARISON: None FINDINGS: Comminuted fracture involving the right humeral head and neck. Limited evaluation due to mi nimal joint space. Visualized scapula, clavicles and ribs do not demonstrate any fracture. IMPRESSION: Right humeral head and neck fracture.
--- NOTE | 2020-04-25 11:03 | RAD ---
Exam:3 views right wrist HISTORY: Fall. Pain. COMPARISON: None FINDINGS: Intercarpal and radiocarpal joint spaces are preserved. No fracture. IMPRESSION: No fracture. If there is pain or point tenderness, consider immobilization and follow-up imaging in 7-10 days. If there is pain in the anatomic snuffbox, consider dedicated scaphoid view.
[2020-04-25] MEDS ORDERED: HYDROcodone/Acetaminophen 10/325 mg Tablet ONE (11:13)
[2020-04-25] MEDS ORDERED: HYDROcodone/Acetaminophen 5/325 mg Tablet ONE (11:14)
== END 2020-04-25 11:57 | disposition home or self-care (01) ==
LOC: ERS 10:04
DX: S42.211A Unspecified displaced fracture of surgical neck of right humerus, initial encounter for closed fracture (principal); R07.89 Other chest pain; E78.5 Hyperlipidemia, unspecified; E78.00 Pure hypercholesterolemia, unspecified; I10 Essential (primary) hypertension; W00.1XXA Fall from stairs and steps due to ice and snow, initial encounter; Z79.01 Long term (current) use of anticoagulants; Z79.899 Other long term (current) drug therapy
CPT/HCPCS: 71045

== ENCOUNTER 2020-09-17 12:54 | Outpatient (CLI) | payer OTHER ==
[~2020-09-17 12:54] MED LIST: Iopamidol-370 76% 500 ML 1 ML ONE
== END 2020-09-17 12:55 | disposition home or self-care (01) ==
LOC: BICCT 12:54
PROVIDERS: ATTEND Urology
DX: R10.9 Unspecified abdominal pain (principal); R31.9 Hematuria, unspecified
CPT/HCPCS: 74178; Q9967